=== PATIENT | male | born 1975 | race African-American/Black ===

== ENCOUNTER 2016-11-24 04:22 | Emergency (ER) | payer SELFPAY ==
[~2016-11-24] VITALS: Ht 165.1 cm; Wt 75.0 kg
[2016-11-24] MEDS ORDERED: AMOXICILLIN 500 MG CAPSULE PO ONE (07:00)
[2016-11-24] MEDS ORDERED: KETOROLAC 60MG/2ML VIAL IM ONE (07:00)
[2016-11-24 08:22] VITALS: BP 139/82
== END 2016-11-24 08:23 | disposition home or self-care (01) ==
LOC: ER 04:22
DX: K04.7 Periapical abscess without sinus (principal); E11.9 Type 2 diabetes mellitus without complications; F17.200 Nicotine dependence, unspecified, uncomplicated
CPT/HCPCS: 96372; 99283; J1885

== ENCOUNTER 2023-11-03 12:31 | Emergency (ER) | payer MEDICAID ==
[~2023-11-03] VITALS: Ht 165.1 cm; Wt 64.0 kg
[2023-11-03 12:34] VITALS: O2SAT 100
[2023-11-03 17:17] LABS: BASOPHILS % 1.2 % (0.0-2.0); EOSINOPHILS % 2.8 % (0.0-5.0); HEMATOCRIT. 43.7 % (42.0-52.0); HEMOGLOBIN. 14.6 g/dL (14.0-18.0); MEAN CORPUSCULAR HEMOGLOBIN 28.3 pg (28.0-32.0); MEAN CORPUSCULAR HGB CONC 33.3 g/dL (31.0-37.0); MEAN CORPUSCULAR VOLUME 84.8 fL (80.0-94.0); MEAN PLATELET VOLUME 8.5 fl (7.4-10.4); MONOCYTES % 8.1 % (2.0-8.0); NEUTROPHILS % 58.9 % (40.0-76.0); PLATELET 294 x1000/uL (130-400); RED BLOOD CELL COUNT 5.15 mill/uL (4.7-6.1); WHITE BLOOD COUNT 7.9 x1000/uL (4.5-11.0)
[2023-11-03 17:34] LABS: CHLORIDE 103 mEq/L (98-107); POTASSIUM 4.4 mEq/L (3.5-5.1); SODIUM 134 mEq/L (136-145)
[2023-11-03 17:35] LABS: CARBON DIOXIDE 26 mEq/L (21-32)
[2023-11-03 17:40] LABS: CREATININE 1.2 mg/dL (0.6-1.3)
[2023-11-03 17:41] LABS: UREA NITROGEN BLOOD 12 mg/dL (9-23)
[2023-11-03 17:42] LABS: ALANINE AMINOTRANSFERASE 20 IU/L (10-49); ALBUMIN 4.2 g/dL (3.2-4.8); ASPARTATE AMINOTRANSFERASE 16 IU/L (<34); GLUCOSE 351 mg/dL (70-105)
[2023-11-03 17:43] LABS: BILIRUBIN TOTAL 0.7 mg/dL (0.1-1.0); PROTEIN TOTAL 7.1 g/dL (6.0-8.3)
[2023-11-03] MEDS ORDERED: TRIA60LO12 TP (17:45)
[2023-11-03] MEDS ORDERED: METF-414 MT (17:45)
[2023-11-03 17:56] VITALS: BP 199/94; PULSE 74; RESP 18; TEMP 98.1
== END 2023-11-03 17:58 | disposition home or self-care (01) ==
LOC: ER 12:31
DX: K08.89 Other specified disorders of teeth and supporting structures (principal); R21 Rash and other nonspecific skin eruption; E11.65 Type 2 diabetes mellitus with hyperglycemia
CPT/HCPCS: 36415; 80053; 82962; 85025; 99283